=== PATIENT | female | born 1965 | race Caucasian/White ===

== ENCOUNTER 2017-07-29 11:41 | Emergency (ER) | payer SELFPAY ==
[~2017-07-29] VITALS: Ht 175.3 cm; Wt 81.3 kg
[~2017-07-29 11:41] MED LIST: CYCL-36 PO; IBUP800 PO; MEDR4PAK3 PO
[2017-07-29 11:49] VITALS: BP 162/101; PULSE 87; RESP 16; TEMP 98.7; O2SAT 96
[2017-07-29] MEDS ORDERED: LISI20TA PO (12:03)
[2017-07-29] MEDS ORDERED: OSEL75 PO (12:55)
--- NOTE | 2017-07-29 12:56 | PD ---
HPI Chief Complaint: Cold / Flu Symptoms Time Seen by Provider: 12:44 Travel History International Travel<30 days: No Contact w/Intl Traveler<30days: No Traveled to known affect area: No History of Present Illness HPI This is a 52-year-old female here with flulike illness times one day. She is reporting body aches, fevers, chills and sore throat. She has 2 family members in the home who have tested positive for influenza A. Symptom severity is moderate. No aggravating or alleviating factors. PFSH Past Medical History Asthma: Yes ( A CHILD) Cancer: No Cardiovascular Problems: Yes (htn on meds) Diabetes: No Diminished Hearing: No Hepatitis: No Hiatal Hernia: No Hypertension: Yes Respiratory: Yes Immunizations Current: No Thyroid Disease: No Tetanus Vaccination: < 5 Years Influenza Vaccination: No ?: Not Menopausal: Yes : 9 Para: 9 Miscarriage: 0 : 0 Tubal Ligation: Yes Past Surgical History Abdominal Surgery: No Cardiac Surgery: No Ear Surgery: No Endocrine Surgery: No Eye Surgery: No Genitourinary Surgery: No Gynecologic Surgery: Yes (TUBALIGATION) Neurologic Surgery: No Oral Surgery: No Thoracic Surgery: No Other Surgery: Yes Social History Alcohol Use: Yes (OCCASIONAL ) Tobacco Use: Yes Substance Use: No Allergies-Medications (Allergen,Severity, Reaction): Coded Allergies: latex (Verified Allergy, Intermediate, SNEEZING/WATERY EYES WITH AIR, ) azithromycin (Verified Allergy, Mild, RASH, 07/29/17) codeine (Verified Allergy, Mild, RASH, 07/29/17) erythromycin base (Verified Allergy, Mild, RASH, 07/29/17) penicillin G (Verified Allergy, Mild, RASH, 07/29/17) Reported Meds & Prescriptions Reported Meds & Active Scripts Active Reported Lisinopril-Hctz 20-12.5 Mg Tab 1 Tab PO DAILY Review of Systems Except as stated in HPI: all other systems reviewed are Neg General / Constitutional: Positive: Fever Eyes: No: Visual changes HENT: Positive: Sore Throat, Congestion Cardiovascular: No: Chest Pain or Discomfort Respiratory: Positive: Cough Gastrointestinal: No: Abdominal Pain Genitourinary: No: Dysuria Physical Exam Narrative GENERAL: Alert and well-appearing 52-year-old female SKIN: Warm and dry. No rash HEAD: Normocephalic. EYES: No injection or drainage. Ears/nose/throat: No TM erythema. Clear nasal discharge. Mild pharyngeal erythema without tonsillar hypertrophy or exudate. Uvula is midline. Airway is patent. NECK: Supple. No meningismus CARDIOVASCULAR: Regular rate and rhythm RESPIRATORY: Breath sounds equal bilaterally. No accessory muscle use. No wheezing rales or rhonchi. GASTROINTESTINAL: Abdomen soft, non-tender, nondistended. MUSCULOSKELETAL: No cyanosis, or edema. BACK: No CVA tenderness. Data Data Last Documented VS Vital Signs Date Time Temp Pulse Resp B/P (MAP) Pulse Ox O2 Delivery O2 Flow Rate FiO2 07/29/17 11:49 98.7 87 16 162/101 (121) 96 MDM Medical Decision Making Medical Screen Exam Complete: Yes Emergency Medical Condition: Yes Differential Diagnosis Influenza, bronchitis, pneumonia, strep pharyngitis Narrative Course This is a 52-year-old female with flulike illness times one day. Multiple family members in the home with influenza A. Patient is nontoxic-appearing. She'll be treated with Tamiflu. Diagnosis Primary Impression: Influenza Referrals: Primary Care Physician Departure Forms: Tests/Procedures, Work Release Enter return to work date: Aug 04, 2017 Additional Instructions: Tylenol and ibuprofen for fever control. Stay well hydrated. Tamiflu as directed. Return if he developed new or worsening symptoms Scripts Oseltamivir (Tamiflu) 75 Mg Cap 75 MG PO BID for Mgmt Viral Infection for 5 Days, #10 CAP 0 Refills Prov: Jeni Treviño 07/29/17 Disposition: 01 DISCHARGE HOME Condition: Stable Jeni Treviño Jul 29, 2017 12:55
== END 2017-07-29 13:12 | disposition home or self-care (01) ==
LOC: PHEFT 11:41
DX: J11.1 Influenza due to unidentified influenza virus with other respiratory manifestations (principal); I10 Essential (primary) hypertension; Z20.828 Contact with and (suspected) exposure to other viral communicable diseases; Z72.0 Tobacco use; Z88.0 Allergy status to penicillin; Z88.1 Allergy status to other antibiotic agents; Z88.5 Allergy status to narcotic agent; Z79.899 Other long term (current) drug therapy
CPT/HCPCS: 99283

== ENCOUNTER 2017-10-06 13:58 | Emergency (ER) | payer SELFPAY ==
[~2017-10-06] VITALS: Ht 175.3 cm; Wt 61.0 kg
[~2017-10-06 13:58] MED LIST changes: -CYCL-36 PO; -IBUP800 PO; +LISI20TA PO; -MEDR4PAK3 PO; +OSEL75 PO
[2017-10-06 14:05] VITALS: BP 165/108; PULSE 93; RESP 18; TEMP 98.3; O2SAT 97
--- NOTE | 2017-10-06 15:04 | RADRPT ---
EXAM DATE/TIME: 10/06/2017 14:34 [facility] COMPARISON: No previous studies available for comparison. INDICATIONS : Left anterior knee pain after hitting petallar surface on corner of cabinet. MEDICAL HISTORY : Hypertension. Asthma. SURGICAL HISTORY : Tubal ligation. Right ankle ENCOUNTER: Initial ACUITY: 3 days PAIN SCORE: 10/10 LOCATION: Left anterior knee FINDINGS: Four view examination of the left knee demonstrates no evidence of fracture or dislocation. Bony pro jection along the medial distal femur with marrow continuity likely reflects an enchondroma. Bony min eralization is normal. The articular surfaces are intact. The suprapatellar soft tissues have a nor mal configuration. CONCLUSION: 1. Medial distal femoral osteochondroma. 2. No acute fracture or dislocation. Shalom Haynes MD on October 06, 2017 at 14:55 Board Certified Radiologist. This report was verified electronically.
[2017-10-06] MEDS ORDERED: KETOROLAC TROMETHAMINE 60 MG/2 ML (IM) VIAL IM ONE (15:15)
--- NOTE | 2017-10-06 15:15 | PD ---
HPI Chief Complaint: Musculoskeletal Complaint Time Seen by Provider: 14:28 Travel History International Travel<30 days: No Contact w/Intl Traveler<30days: No Traveled to known affect area: No History of Present Illness HPI 52-year-old female here with left knee pain 2 days. She reports while at work she contused the left knee side of her desk. She had pain immediately. Pain has progressed over the last 2 days to the point that she has difficulty weightbearing. Pain is worse with range of motion and palpation of the anterior aspect of the knee. Denies paresthesia or weakness of the extremity. Symptom severity is moderate. No alleviating factors. PFSH Past Medical History Asthma: Yes ( A CHILD) Cancer: No Cardiovascular Problems: Yes (htn on meds) Diabetes: No Diminished Hearing: No Hepatitis: No Hiatal Hernia: No Hypertension: Yes Respiratory: Yes Immunizations Current: Yes Thyroid Disease: No Tetanus Vaccination: < 5 Years Influenza Vaccination: No ?: Not Menopausal: Yes : 9 Para: 9 Miscarriage: 0 : 0 Tubal Ligation: Yes Past Surgical History Abdominal Surgery: No Cardiac Surgery: No Ear Surgery: No Endocrine Surgery: No Eye Surgery: No Genitourinary Surgery: No Gynecologic Surgery: Yes (TUBALIGATION) Neurologic Surgery: No Oral Surgery: No Thoracic Surgery: No Other Surgery: Yes Social History Alcohol Use: Yes (OCCASIONAL ) Tobacco Use: Yes (1/2) Substance Use: No Allergies-Medications (Allergen,Severity, Reaction): Coded Allergies: latex (Verified Allergy, Intermediate, SNEEZING/WATERY EYES WITH AIR, 10/06) azithromycin (Verified Allergy, Mild, RASH, 10/06/17) codeine (Verified Allergy, Mild, RASH, 10/06/17) erythromycin base (Verified Allergy, Mild, RASH, 10/06/17) penicillin G (Verified Allergy, Mild, RASH, 10/06/17) Reported Meds & Prescriptions Reported Meds & Active Scripts Active Reported Lisinopril-Hctz 20-12.5 Mg Tab 1 Tab PO DAILY Review of Systems Except as stated in HPI: all other systems reviewed are Neg Physical Exam Narrative GENERAL: Alert and well-appearing 52-year-old female SKIN: Warm and dry. HEAD: Normocephalic. EYES: No scleral icterus. No injection or drainage. NECK: Supple CARDIOVASCULAR: Regular rate and rhythm without murmurs, gallops, or rubs. RESPIRATORY: Breath sounds equal bilaterally. No accessory muscle use. GASTROINTESTINAL: nondistended. MUSCULOSKELETAL: No cyanosis, or edema. Left lower extremity: +TTP anterior aspect of the knee. No obvious deformity. Range of motion limited due to pain. Normal sensation distally. Palpable DP pulse. Normal coloration. Brisk cap refill. BACK: No CVA tenderness. Data Data Last Documented VS Vital Signs Date Time Temp Pulse Resp B/P (MAP) Pulse Ox O2 Delivery O2 Flow Rate FiO2 10/06/17 14:05 98.3 93 18 165/108 (127) 97 Orders Orders Knee, Complete (4vws) (10/06/17 ) Ketorolac Inj (Toradol Inj) (10/06/17 15:15) Tramadol (Ultram) (10/06/17 15:30) Armand Bandage (10/06/17 15:19) MDM Medical Decision Making Medical Screen Exam Complete: Yes Emergency Medical Condition: Yes Differential Diagnosis Contusion, fracture, knee sprain Narrative Course 52-year-old female here with left knee pain after she contused the knee on the side of her desk 2 days ago. The extremity is neurovascularly intact. X-rays negative for fracture dislocation. X-ray did fine osteochondroma which patient was made aware of. She agrees to follow-up with orthopedic Diagnosis Primary Impression: Knee pain Qualified Codes: M25.562 - Pain in left knee Referrals: Quinton Perry Jr., MD Orthopedist Additional Instructions: Armand wrap and crutches for weightbearing. Pain medication as directed. Follow-up with your primary doctor and orthopedic doctor regarding osteochondroma found on x-ray Scripts Walker/Adult/Folding (Walker/Adult/Folding) 1 Mis Mis EA .XX DIRECTED, #1 0 Refills Prov: Jeni Treviño 10/06/17 Tramadol (Ultram) 50 Mg Tab 50 MG PO Q6H Y for PAIN, #12 TAB 0 Refills Prov: Jeni Treviño 10/06/17 Disposition: 01 DISCHARGE HOME Condition: Stable Jeni Treviño Oct 06, 2017 15:15
[2017-10-06] MEDS ORDERED: WALKER/ADULT/FO1 MIS (15:22)
[2017-10-06] MEDS ORDERED: TRAM50 PO (15:22)
[2017-10-06] MEDS ORDERED: traMADol HCL 50 MG TAB PO ONE (15:30)
== END 2017-10-06 16:10 | disposition home or self-care (01) ==
LOC: PHEFT 13:58
DX: M25.562 Pain in left knee (principal); S80.02XA Contusion of left knee, initial encounter; W22.03XA Walked into furniture, initial encounter; I10 Essential (primary) hypertension; F17.200 Nicotine dependence, unspecified, uncomplicated
CPT/HCPCS: 73564; 99283; E0113